=== PATIENT | male | born 1955 | race African-American/Black ===

== ENCOUNTER 2018-01-02 05:28 | Inpatient (IN) | payer MEDICAID, OTHER ==
[~2018-01-02] VITALS: Ht 185.4 cm; Wt 101.2 kg
--- NOTE | 2018-01-02 01:00 | NUR ---
PATIENT WAS BROUGHT TO THE UNIT ON A GURNEY. PATIENT IS SLEEPING, AROUSED WITH VERBAL STIMULI BUT IS NON-VERBAL AND UNABLE TO COMPREHEND AT THIS TIME. ON ROOM AIR TOLERATING WELL. IN NO APPARENT DISTRESS OR DISCOMFORT AT THIS TIME. RESPIRATIONS EVEN AND UNLABORED. UNABLE TO OBTAIN FULL ASSESSMENT DUE TO PATIENT'S CURRENT MENTAL STATUS. PHYSICAL ASSESSMENT COMPLETE TO THE BEST OF ABILITY. SKIN CHECK DONE, VITAL SIGNS CHECKED AND RECORDED. BELONGINGS LIST PLACED IN A CHART. PATIENT ADMITTED TO TELEMETRY. L FA 20G IVC, PATENT AND INTACT, WITH FLUIDS RUNNING AT 150ML/HR. NO SIGN OF INFILTRATION NOTED. PATIENT WAS MADE COMFORTABLE IN BED, ALL NEEDS ATTENDED AT THIS TIME. WILL CARRY OUT ADMISSION ORDERS AND CONTINUE TO MONITOR. Addendum: 01/02/18 at 2003 by EVIE CARRILLO RN NOT WAS PUT UNDER WRONG HOUR.
--- NOTE | 2018-01-02 05:28 | NUR ---
PT TO ER BB RA FROM STREETS FOR BIZARRE BEHAVIOR. PT TACHY AT 110. BREATHS EQUAL AND UNLABORED. PT TO ER BED CHANGED INTO GOWN AND CONNECTED TO MONITOR. PT WAITING TO BE SEEN BYMD.
[2018-01-02] MEDS ORDERED: OLANZAPINE 10 MG VIAL IM ONE ×2 (06:07→06:30)
[2018-01-02] MEDS ORDERED: LORAZEPAM INJ 2 MG/ML VIAL ONE ×2 (06:08→06:12)
--- NOTE | 2018-01-02 06:17 | NUR ---
PT MEDICATED ORDERED.
[2018-01-02] MEDS ORDERED: LORAZEPAM INJ 2 MG/ML VIAL IM ONE (06:30)
--- NOTE | 2018-01-02 07:19 | NUR ---
Labs drawn for blood work
[2018-01-02 07:22] LABS: BASOPHILS # (AUTO) 0.2 /CMM (0.0-0.2); BASOPHILS % (AUTO) 0.8 % (0.0-2.0); EOSINOPHILS % (AUTO) 0.6 % (0.0-6.0); HEMATOCRIT 41 % (39-51); HEMOGLOBIN 13.6 g/dL (13.5-17.5); LYMPHOCYTES # (AUTO) 2.7 /CMM (0.8-4.8); LYMPHOCYTES % (AUTO) 12.2 % (20.0-44.0); MEAN CORPUSCULAR HEMOGLOBIN 28 PG (26.0-33.0); MEAN CORPUSCULAR HGB CONC 34 g/dl (31.0-36.0); MEAN CORPUSCULAR VOLUME 83 fL (80-96); MONOCYTES # (AUTO) 2.2 /CMM (0.1-1.30); MONOCYTES % (AUTO) 9.9 % (2.0-12.0); NEUTROPHILS % (AUTO) 76.5 % (43.0-81.0); PLATELET COUNT (AUTO) 403 /CMM (150-450); RDW COEFFICIENT OF VARIATION 18.1 (11.5-15.0); RED BLOOD CELL COUNT(AUTO) 4.88 MIL/uL (4.5-6.0); WHITE BLOOD COUNT (AUTO) 22.2 K/uL (4.3-11.0)
[2018-01-02 07:48] LABS: CALCIUM, SERUM 11.6 mg/dL (8.5-10.1); CARBON DIOXIDE 24 mmol/L (21-32); CHLORIDE 113 mmol/L (98-107); CREATININE 1.1 mg/dL (0.6-1.3); GLUCOSE 133 mg/dL (74-106); POTASSIUM 3.7 mmol/L (3.5-5.1); SODIUM SERUM 153 mmol/L (136-145); UREA NITROGEN, BLOOD 37 mg/dL (7-18)
[2018-01-02 07:51] LABS: ALANINE AMINOTRANSFERASE 54 U/L (12-78); ALBUMIN 4.5 g/dL (3.4-5.0); ALCOHOL, BLOOD < 3 mg/dL (0-0); ALKALINE PHOSPHATASE 57 U/L (46-116); ASPARTATE AMINOTRANSFERASE 50 U/L (15-37); BILIRUBIN,DIRECT 0.5 mg/dL (0.0-0.2); BILIRUBIN,TOTAL 1.6 mg/dL (0.2-1.0); TOTAL PROTEIN, SERUM 8.7 g/dL (6.4-8.2)
[2018-01-02] MEDS ORDERED: IV NS 0.9% 500 ML BAG IV ONE (08:00)
[2018-01-02] MEDS ORDERED: IV NS 0.9% 1,000 ML BAG IV ONE (08:00)
[2018-01-02 08:25] LABS: APPEARANCE,URINE SL CLOUDY (CLEAR); BILIRUBIN,URINE 1+ (NEGATIVE); BLOOD, URINE 2+ Ery/uL (NEGATIVE); COLOR,URINE DARK YELLOW (YELLOW); KETONES,URINE 1+ (NEGATIVE); LEUKOCYTE ESTERASE ,URINE NEGATIVE (NEGATIVE); NITRITE, URINE NEGATIVE (NEGATIVE); PROTEIN,URINE 2+ mg/dl (NEGATIVE); UGLUCOSE NEGATIVE (NEGATIVE)
[2018-01-02 08:47] LABS: CREATINE KINASE MB 9.2 ng/mL (0-3.6)
[2018-01-02 08:54] LABS: BACTERIA,URINE Moderate /HPF (None Seen); SQUAMOUS EPITHELIAL CELL,UR Moderate /HPF (None Seen)
[2018-01-02 08:55] LABS: URINE AMORPHOUS URATE Many /HPF (None Seen); WBC,URINE 0-2 /HPF (0-3)
--- NOTE | 2018-01-02 09:56 | NUR ---
RAYMUNDO BURDICK CALLED FOR TELE BED
[2018-01-02] MEDS ORDERED: IV D5/0.45 NACL 1,000 ML IV ONE (10:04)
--- NOTE | 2018-01-02 10:44 | NUR ---
CALLED [facility] FOR PANEL CALL AND DR DINERO WAS PAGED.
[2018-01-02 11:00] LABS: EOSINOPHILS % (MANUAL) 1 % (0-4); LYMPHOCYTES % (MANUAL) 15 % (16-48); MONOCYTES % (MANUAL) 7 % (0-11.0); NEUTROPHILS % (MANUAL) 77 (42-76)
--- NOTE | 2018-01-02 11:15 | NUR ---
PT IS ASSIGNED TO [facility]#: [id number], DX: MARCO ANTONIO, AND ACCEPTING: DR DINERO
--- NOTE | 2018-01-02 12:15 | NUR ---
REPORT GIVEN TO MACARENA CASE FOR HAYLEY TELE 118-2
--- NOTE | 2018-01-02 12:30 | NUR ---
RECEIVED REPORT FROM MACARENA GUZMÁN, PATIENT TO BE ADMITTED TO TELEMETRY UNIT.
[2018-01-02 13:00] VITALS: BP 163/94
--- NOTE | 2018-01-02 13:00 | NUR ---
QUALITY ASSURANCE COACH ADMITTING ORDER PATIENT WAS BROUGHT TO THE UNIT ON A GURNEY. PATIENT IS SLEEPING, AROUSED WITH VERBAL STIMULI BUT IS NON-VERBAL AND UNABLE TO COMPREHEND AT THIS TIME. ON ROOM AIR TOLERATING WELL. IN NO APPARENT DISTRESS OR DISCOMFORT AT THIS TIME. RESPIRATIONS EVEN AND UNLABORED. UNABLE TO OBTAIN FULL ASSESSMENT DUE TO PATIENT'S CURRENT MENTAL STATUS. PHYSICAL ASSESSMENT COMPLETE TO THE BEST OF ABILITY. SKIN CHECK DONE, VITAL SIGNS CHECKED AND RECORDED. BELONGINGS LIST PLACED IN A CHART. PATIENT ADMITTED TO TELEMETRY. L FA 20G IVC, PATENT AND INTACT, WITH FLUIDS RUNNING AT 150ML/HR. NO SIGN OF INFILTRATION NOTED. PATIENT WAS MADE COMFORTABLE IN BED, ALL NEEDS ATTENDED AT THIS TIME. WILL CARRY OUT ADMISSION ORDERS AND CONTINUE TO MONITOR.
[2018-01-02] MEDS ORDERED: ZOLPIDEM TARTRATE 5 MG TABLET PO PRN (15:00)
[2018-01-02] MEDS ORDERED: ACETAMINOPHEN 325 MG TABLET PO PRN (15:00)
[2018-01-02] MEDS ORDERED: MAGNESIUM HYDROXIDE 30 ML UDC PO PRN (15:00)
[2018-01-02] MEDS ORDERED: ONDANSETRON HCL/PF 4 MG/2 ML VIAL IVP PRN (15:00)
[2018-01-02] MEDS ORDERED: MAG HYDROX/AL HYDROX/SIMETH 30 ML UDC PO PRN (15:00)
[2018-01-02] MEDS ORDERED: Z GUARD REMEDY 2 OZ OINT TP PRN (15:00)
[2018-01-02 16:00] VITALS: BP 169/99
[2018-01-02 16:23] VITALS: BP 169/99
--- NOTE | 2018-01-02 18:00 | NUR ---
PATIENT HAS WOKEN UP AND BEING ALL CONFUSED, GOT OUT OF THE BED AND PULLED OUT HIS IVC. WILL CLEAN UP THE PATIENT AND REATTEMPT GETTING ANOTHER IV LINE.
--- NOTE | 2018-01-02 18:55 | NUR ---
AFTER SEVERAL ATTEMPT BY ME AND ANOTHER RN, WAS UNABLE TO GET AND IV ACCESS. USED ACCU-VEIN MACHINE, NO SUCCESS. NOTIFIED DR. DINERO TO OBTAIN MIDLINE FOR THE PATIENT. ORDER RECEIVED. NOTIFIED THE CASING MIXER. NOTIFIED MARVIN MCCLELLAND ABOUT THE NEED OF THE MIDLINE. WAITING FOR AN ANSWER. WILL GIVE THE REPORT TO THE SENIOR VISUAL DESIGNER NURSE WITH THE LATEST UPDATE.
[2018-01-02 20:00] VITALS: BP 135/75
--- NOTE | 2018-01-02 20:00 | NUR ---
RN INITIAL NOTES RECEIVED PT AWAKE, SITTING ON BED. PATIENT IS A/O TO NAME AND BIRTHDATE ONLY, DOES NOT KNOW WHERE HE IS OR WHAT HAPPENED PRIOR TO BEING HERE. PT ON ROOM AIR, NO S/S OF RESP DISTRESS. CURRENTLY SINUS TACH ON THE MONITOR, HR 110'S. PT IS CONTINENT, ABLE TO AMBULATE TO BATHROOM ON A STEADY GAIT. HE HAS NO IV ACCESS OF NOW, PREVIOUS ONE WAS PULLED OUT; DAY SHIFT UNABLE TO INSERT NEW IV DUE TO PATIENT BEING HARD STICK. MIDLINE ORDERED BY MD. WILL ATTEMPT TO START PERIPHERAL IV. BED LOW AND LOCKED, SIDERAILS UP, CALL LIGHT WITHIN REACH. WILL MONITOR
--- NOTE | 2018-01-02 20:04 | NUR ---
LOCOMOTIVE ENGINEER CLOSING NOTE PATIENT IN BED. ALERT ORIENTED X2, VERBAL BUT UNCLEAR SPEECH. ON ROOM AIR, TOLERATING WELL. RESPIRATIONS EVEN AND UNLABORED. IN NO APPARENT DISTRESS OR DISCOMFORT AT THIS TIME. DENIES PAIN AND SOB. PATIENT IS AMBULATORY ABLE TO VERBALIZE NEEDS. ADMITTING AND PRIMARY ATTENDING WAS MADE AWARE THAT PATIENT IS CURRENTLY AWAKE. UNABLE TO OBTAIN MUCH HISTORY FROM PATIENT HE WAS STILL CONFUSED. NO IVC AT THIS TIME. PATIENT PULLED OUT HIS IV SITE EARLIER TRYING TO USE THE BATHROOM. PATIENT WAS MADE COMFORTABLE IN BED, CLEANED AND GIVEN BED BATH. ALL NEEDS ATTENDED AT THIS TIME. SAFETY MEASURES IN PLACE, BED IN LOW LOCKED POSITION , SIDE RAILS UP X2, CALL LIGHT WITHIN EASY REACH. WILL ENDORSE TO PM NURSE FOR HAYLEY.
--- NOTE | 2018-01-02 20:40 | NUR ---
RN NOTES INFORMED DR DINERO THAT PATIENT CURRENTLY DOES NOT HAVE ANY IV ACCESS DUE TO BEING HARD STICK AND THAT MIDLINE INSERTION MOST PROBABLY WON'T BE AVAILABLE UNTIL TOMORROW MORNING. ALSO INFORMED HIM THAT PATIENT IS FULLY AWAKE AND ALERT WITH COMPLAINTS OF HUNGER. PER MD, PATIENT IS TO HAVE REGULAR DIET
[2018-01-03] VITALS (7 sets, daily range): BP systolic 141–173; BP diastolic 82–103
--- NOTE | 2018-01-03 | NUR ---
RN NOTES RIGHT HAND 22G INSERTED, X1 ATTEMPT, FLUSHED AND SECURED IN PLACE.
[2018-01-03] MEDS: IV NS 0.9% 1,000 ML BAG IV PRN ×2 (00:16→10:00)
--- NOTE | 2018-01-03 06:30 | NUR ---
RN CLOSING NOTES PT REMAINS STABLE OF THE MOMENT. ALL DUE MEDS GIVEN, AM CARE PROVIDED. WILL ENDORSE HAYLEY TO AM RN
--- NOTE | 2018-01-03 07:15 | NUR ---
TELE/RN INITIAL NOTES RECEIVED PT IN BED, ASLEEP BUT AROUSABLE TO NAME AND LIGHT TOUCH. NO C/O PAIN AT THIS TIME.SR ON TELEMONITOR. ON RA TOLERATING WELL. NO SOB NOTED. WITH ONGOING IVF NS @ 125 ML/HR INFUSING WELL ON RHAND. IV LINE INTACT AND PATENT, NO SIGNS OF INFECTION NOTED. SAFETY MEASURES IN PLACED. CALL LIGHT WITHIN REACH. WILL CONT TO MONITOR
[2018-01-03 08:59] LABS: CALCIUM, SERUM 9.2 mg/dL (8.5-10.1); CREATININE 0.7 mg/dL (0.6-1.3); PHOSPHORUS 2.4 mg/dL (2.5-4.9); POTASSIUM 3.7 mmol/L (3.5-5.1)
[2018-01-03] MEDS ORDERED: IV NS 0.9% 1,000 ML BAG IV SCH (09:00)
[2018-01-03] MEDS ORDERED: AMLO5TAB2 PO (09:19)
[2018-01-03] MEDS ORDERED: ASPI-605 PO (09:19)
[2018-01-03] MEDS ORDERED: ENAL10TA PO (09:19)
[2018-01-03] MEDS ORDERED: HYDR-548 PO (09:19)
[2018-01-03] MEDS ORDERED: GABA-534 PO (09:19)
[2018-01-03 09:37] LABS: BASOPHILS # (AUTO) 0.5 /CMM (0.0-0.2); BASOPHILS % (AUTO) 3.9 % (0.0-2.0); EOSINOPHILS % (AUTO) 2.2 % (0.0-6.0); HEMATOCRIT 32 % (39-51); HEMOGLOBIN 12.5 g/dL (13.5-17.5); LYMPHOCYTES # (AUTO) 3.2 /CMM (0.8-4.8); LYMPHOCYTES % (AUTO) 24.9 % (20.0-44.0); MEAN CORPUSCULAR HEMOGLOBIN 32 PG (26.0-33.0); MEAN CORPUSCULAR HGB CONC 39 g/dl (31.0-36.0); MEAN CORPUSCULAR VOLUME 83 fL (80-96); MONOCYTES # (AUTO) 0.7 /CMM (0.1-1.30); MONOCYTES % (AUTO) 5.7 % (2.0-12.0); NEUTROPHILS # (AUTO) 8.3 /CMM (1.8-8.9); NEUTROPHILS % (AUTO) 63.3 % (43.0-81.0); PLATELET COUNT (AUTO) 171 /CMM (150-450); RED BLOOD CELL COUNT(AUTO) 3.86 MIL/uL (4.5-6.0)
[2018-01-03 10:19] LABS: CREATINE KINASE MB 3.4 ng/mL (0-3.6)
[2018-01-03] MEDS ORDERED: K PHOS NEUTRAL 250 MG TABLET PO ONE (11:30)
--- NOTE | 2018-01-03 11:35 | NUR ---
Social service consult requested by Dr. Yoo for possible homelessness and AMS. Pt. is a 62 year old male who was admitted to [facility] for altered mental status. SW met with pt. bedside. Pt. is alert and oriented x 4. Pt. appeared disheveled. Pt. was cooperative and friendly with SW during the assessment. Pt. informed SW that his first name is Ashley and Omi is his last name. Pt. states he is in transition and will be moving back to [place]. Pt. has a psychiatric diagnosis of Schizophrenia, Bipolar, Depression and Anxiety. Pt's current medication is Seroquel and Prozac. Pt. wants to go to [facility] on a voluntary basis. Pt. denies suicidal and homicidal ideations at this time. Pt. states he uses methamphetamines frequently and last used yesterday. Pt. drinks beer once a week. SW to refer pt. to [facility] prior to discharge. EVELIN updated Dori in admitting with pt's social security number and correct name. EVELIN updated ERIBERTO CRIsauro Gage as well. No other social service needs are required at this time.
--- NOTE | 2018-01-03 19:06 | NUR ---
RN NOTES PT REMAINED IN STABLE CONDITION. NO ACUTE DISTRESS NOTED THROUGHOUT SHIFT. SAFETY MEASURES OBSERVED AT ALL TIMES, ALL NEEDS ANTICIPATED,
[2018-01-03] MEDS: HYDROCODONE/APAP 5/325MG 1 EACH TABLET PO PRN (20:21)
[2018-01-04] VITALS (9 sets, daily range): BP systolic 149–188; BP diastolic 77–107
[2018-01-04] MEDS: IV NS 0.9% 1,000 ML BAG IV PRN ×3 (00:12→15:37)
[2018-01-04] MEDS: HYDROCODONE/APAP 5/325MG 1 EACH TABLET PO PRN ×2 (04:42→12:40)
[2018-01-04 06:55] LABS: HEMATOCRIT 40 % (39-51); HEMOGLOBIN 12.4 g/dL (13.5-17.5); MEAN CORPUSCULAR HEMOGLOBIN 27 PG (26.0-33.0); MEAN CORPUSCULAR HGB CONC 32 g/dl (31.0-36.0); MEAN CORPUSCULAR VOLUME 86 fL (80-96); PLATELET COUNT (AUTO) 296 /CMM (150-450); RDW COEFFICIENT OF VARIATION 19.5 (11.5-15.0); RED BLOOD CELL COUNT(AUTO) 4.61 MIL/uL (4.5-6.0); WHITE BLOOD COUNT (AUTO) 10.4 K/uL (4.3-11.0)
[2018-01-04 07:12] LABS: BILIRUBIN,TOTAL 0.3 mg/dL (0.2-1.0); CREATININE 0.7 mg/dL (0.6-1.3); MAGNESIUM 1.6 mg/dL (1.8-2.4); POTASSIUM 3.7 mmol/L (3.5-5.1); TOTAL PROTEIN, SERUM 6.4 g/dL (6.4-8.2)
--- NOTE | 2018-01-04 07:30 | NUR ---
JOY LOADER INITIAL NOTES: RECEIVED PT IN BED SLEEPING, EASY TO AROUSE. A&O X2-3, ABLE TO VERBALIZE NEEDS. ON TELE MONITOR SR HR 81. ON ROOM AIR SATURATING >95%. DENIES ANY PAIN OR DISCOMFORT AT THIS TIME. PT CONTINENT WITH URINAL AT BEDSIDE. PER PM NURSE, PT'S IV INFILTRATED AND UNABLE TO GET NEW IV ACCESS. WILL ATTEMPT AGAIN THIS MORNING. BED IN LOW LOCKED POSITION, CALL LIGHT WITHIN REACH. BED ALARM ON FOR SAFETY. PLAN OF CARE DISCUSSED WITH PT. WILL CONTINUE TO MONITOR.
[2018-01-04 08:43] LABS: LYMPHOCYTES % (MANUAL) 24 % (16-48); MONOCYTES % (MANUAL) 10 % (0-11.0); NEUTROPHILS % (MANUAL) 66 (42-76)
--- NOTE | 2018-01-04 10:15 | NUR ---
NEW IV LINE STARTED IN L. HAND #24 GAUGE. IV FLUIDS RESUMED ORDERED. NEW ORDER RECEIVED FOR MG REPLACEMENT X2. CARRIED OUT. PT REMAINS STABLE AT THIS TIME
[2018-01-04] MEDS: Magnesium 1GM/D5W 100ML PREMIX 100 ML IV SCH ×2 (10:30→11:24)
--- NOTE | 2018-01-04 12:30 | NUR ---
PT NOTED WITH ELEVATED BLOOD PRESSURE 178/102. LEFT MESSAGE WITH DR DINERO REGARDING NO BP MEDS AT THIS TIME. PRN NORCO GIVEN FOR C/O GENERALIZED PAIN 01/26. WILL CONTINUE TO MONITOR AND WAIT FOR CALL BACK.
--- NOTE | 2018-01-04 17:00 | NUR ---
ORDER RECEIVED PER DR DINERO FOR DISCHARGE TO PSYCH FACILITY.
[2018-01-04] MEDS ORDERED: AMLODIPINE BESYLATE 5 MG TABLET PO ONE (18:30)
[2018-01-04] MEDS ORDERED: ENALAPRIL MALEATE (10 MG) 10 MG TABLET PO ONE (18:30)
--- NOTE | 2018-01-04 18:30 | NUR ---
PT STILL WITH ELEVATED BP. DR DINERO MADE AWARE AGAIN WITH NEW ORDER RECEIVED TO GIVE HOME MEDICATION OF BP MEDS X1 NOW BEFORE DISCHARGE. CARRIED OUT
--- NOTE | 2018-01-04 19:00 | NUR ---
DIRECTOR DERMATOLOGY END NOTES: AMLODIPINE AND ENALAPRIL GIVEN ORDERED, BP NOW 158/74, HR 82. PT STABLE AT THIS TIME. REMAINS IN BED, AWAKE. A&O X3. DENIES PAIN OR DISCOMFORT AT THIS TIME. IV FLUIDS CONNECTED TO IV L HAND ORDERED. URINAL AT BEDSIDE FOR PT CONVENIENCE, ALSO AMBULATORY TO BATHROOM WITH ASSISTANCE. BED ALARM ON BUT REMINDED PT TO USE CALL LIGHT FOR HELP. BED IN LOW LOCKED POSITION, CALL LIGHT WITHIN REACH. DISCHARGE PLAN DISCUSSED WITH PT. WILL ENDORSE TO PM SHIFT TO CARRY OUT DISCHARGE ORDERS.
--- NOTE | 2018-01-04 19:30 | NUR ---
ERIBERTO RN NOTES: RECEIVED PATIENT ON BED AWAKE AND ALERT, ON ROOM AIR NOT IN APPARENT DISTRESS. SR ON THE MONITOR. NO COMPLAINTS OF PAIN AT THIS TIME. PATIENT FOR PLANNED DISCHARGE VOLUNTARY GPS GOING TO [facility]. PATIENT AT THIS TIME VERBALIZED DISSATISFACTION AND FRUSTRATION HE CLAIMS HE SHOULD HAVE SOME OF HIS BELONGINGS WITH HIM SUCH HIS PANTS, "SPECIAL SHOES", AND HIS CANE. BUT THOSE ITEMS ARE NOT LOGGED IN HIS BELONGINGS LIST UPON ADMISSION. ATTEMPTED TO EXPLAIN THIS TO PATIENT BUT PATIENT REMAINS UPSET. HE ALSO IS UPSET ABOUT NOT BEING SEEN BY HIS DOCTOR TODAY AND NOW HE IS BEING DISCHARGED TO A FACILITY HE DID NOT AGREED TO. RELAYED PATIENT'S CONCERN TO LICENSED MORTGAGE LOAN OFFICER ABDI. DIRECTIONAL BORE OPERATOR EKATERINA MADE AWARE. EVENTUALLY DIRECTIONAL BORE OPERATOR CAME IN TO SPEAK TO PATIENT. PATIENT NOW AGREEABLE TO DISCHARGE. 2030 PATIENT REQUESTING NOW FOR A CANE HE CLAIMS HE CANNOT PUT WEIGHT ON HIS RIGHT FOOT AND WANTS THIS FOR PERSONAL USE. EXPLAINED TO PATIENT THAT AT THIS TIME WE ARE UNABLE TO PROVIDE THIS FOR HIM. ATTEMPTED TO GIVE REPORT TO [facility] BUT WAS ASKED TO CALL BACK. 2100 VS CHECKED PATIENT'S BP IS ELEVATED AT 173/77. NO MEDS ARE ORDERED FOR PATIENT. CALLED MD MANAGER MANAGEMENT DR FELI PADILLA. MD MADE AWARE OF PATIENT'S CONDITION. WITH ORDERS FOR 0.2 MG CATAPRES TID PRN. AWAITING VERIFICATION FROM PHARMACY. 2129 MED GIVEN ORDERED 2199 RECHECKED PATIENT'S BP AT 158/100. REPORT GIVEN TO MARY ANN OF [address] FLOOR OF [facility]. MADE THEM AWARE PATIENT WAS ARRANGED TO HAVE A [facility] HIS TRANSPORTATION. PATIENT INSTRUCTED THAT HE NEEDS TO GO TO ER FIRST BUT ALREADY HAS A ROOM AT [address] ACCORDING TO MARY ANN FROM THE FACILITY HE IS TRANSFERRING TO. PATIENT AGREED TO INSTRUCTIONS. PATIENT SIGNED DISCHARGE INSTRUCTIONS AND BELONGINGS LIST. 2229 [facility] WAS CONTACTED AND TRANSPORT ARRANGED. PATIENT LEFT UNIT NOT IN APPARENT DISTRESS WITH CURRENT BELONGINGS INTACT.
[2018-01-04] MEDS ORDERED: CLONIDINE HCL 0.1 MG TABLET PO PRN (21:30)
[2018-01-04] MEDS ORDERED: CLONIDINE HCL 0.1 MG TABLET PO SCH (21:30)
== END 2018-01-04 22:40 | DRG 469 ==
LOC: ER 05:30 → EDBD 11:30 → TELE1 11:30
PROVIDERS: ADMIT Family Medicine; ATTEND Family Medicine
DX: N17.0 Acute kidney failure with tubular necrosis (principal); K72.00 Acute and subacute hepatic failure without coma; G92 Toxic encephalopathy; E87.0 Hyperosmolality and hypernatremia; E87.2 Acidosis; E83.52 Hypercalcemia; E86.0 Dehydration; D72.829 Elevated white blood cell count, unspecified; E86.9 Volume depletion, unspecified; F17.200 Nicotine dependence, unspecified, uncomplicated; Z79.82 Long term (current) use of aspirin; Z79.899 Other long term (current) drug therapy; F19.129 Other psychoactive substance abuse with intoxication, unspecified; F41.9 Anxiety disorder, unspecified; E11.65 Type 2 diabetes mellitus with hyperglycemia; F20.9 Schizophrenia, unspecified; F31.9 Bipolar disorder, unspecified
CPT/HCPCS: 36415; 70450-TC; 71045-TC; 80048-TC; 80053-TC; 80061-TC; 80076-TC; 80305; 81000-TC; 82550-TC; 82553-TC; 83735-TC; 84100-TC; 84484-TC; 85025-TC; 87081-TC; 87086-TC; 92521; A4606; A6403; G0480; J2060; J3475; J3490; J7030; J7040; Z7610

== ENCOUNTER 2018-09-09 23:12 | Emergency (ER) | payer OTHER ==
[~2018-09-09 23:12] MED LIST: AMLO5TAB9 PO; ASPI-605 PO; ENAL10TA PO; GABA-534 PO; HYDR-4354 PO
--- NOTE | 2018-09-10 00:24 | NUR ---
CALLED PATIENT IN [place], NO ANSWER.
--- NOTE | 2018-09-10 01:33 | NUR ---
PATIENT SLEEPING IN [place], DOES NOT WANT TO BE SEEN BY ER "I JUST WANT TO SLEEP".
--- NOTE | 2018-09-10 03:03 | NUR ---
PATIENT STILL DOES NOT WANT TO BE SEEN.
== END 2018-09-10 03:05 | disposition left against medical advice (07) ==
LOC: ER 23:19
DX: Z53.21 Procedure and treatment not carried out due to patient leaving prior to being seen by health care provider (principal)